=== PATIENT | female | born 1990 | race Caucasian/White ===

== ENCOUNTER 2021-06-04 21:59 | Inpatient (IN) ==
[2021-06-05 04:06] LABS: Adenovirus Not Detected (Not Detect); Bordetella Pertussis Not Detected (Not Detect); Chlamydophila pneumoniae Not Detected (Not Detect); Coronavirus 229E Not Detected (Not Detect); Coronavirus HKU1 Not Detected (Not Detect); Coronavirus NL63 Not Detected (Not Detect); Coronavirus OC43 Not Detected (Not Detect); Human Metapneumovirus Not Detected (Not Detect); Human Rhinovirus/Enterovirus Not Detected (Not Detect); Influenza A Subtype 2009 H1 Not Detected (Not Detect); Influenza B Not Detected (Not Detect); Mycoplasma pneumoniae Not Detected (Not Detect); Parainfluenza Virus 1 Not Detected (Not Detect); Parainfluenza Virus 2 Not Detected (Not Detect); Parainfluenza Virus 3 Not Detected (Not Detect); Parainfluenza Virus 4 Not Detected (Not Detect); Respiratory Syncytial Virus Not Detected (Not Detect); SARS-CoV-2 Not Detected (Not Detect)
[2021-06-05] MEDS ORDERED: *HR* LORazepam 1 MG TABLET PO PRN (04:13)
[2021-06-05] MEDS ORDERED: *HR* LORazepam 2 MG/ML VIAL IM PRN (04:13)
[2021-06-05] MEDS ORDERED: Acetaminophen 325 MG TABLET PO PRN (04:13)
[2021-06-05] MEDS ORDERED: Haloperidol Lactate 5 MG/ML VIAL IM PRN (04:13)
[2021-06-05] MEDS ORDERED: haloperidoL 5 MG TABLET PO PRN (04:13)
[2021-06-05] MEDS ORDERED: MOM Conc 10 ML UD.LIQ PO PRN (08:16)
[2021-06-05] MEDS ORDERED: Mag Hydrox/Al Hydrox/Simeth 30 ML UDC PO PRN (08:16)
[2021-06-05] MEDS: hydrOXYzine pamoate 25 MG CAPSULE PO SCH ×2 (13:30→20:12)
[2021-06-05] MEDS: Multivit/Ca/Min/Fe/FA 1 TAB TABLET PO SCH (13:30)
[2021-06-05] MEDS: hydrOXYzine pamoate 25 MG CAPSULE PO PRN (17:15)
[2021-06-05] MEDS: Divalproex (12 HR) 500 MG TABLET PO SCH (20:11)
[2021-06-05] MEDS: Famotidine 20 MG TABLET PO SCH (20:11)
[2021-06-05] MEDS: QUEtiapine Fumarate 25 MG TABLET PO PRN (20:12)
[2021-06-06] MEDS: Famotidine 20 MG TABLET PO SCH ×2 (09:18→21:11)
[2021-06-06] MEDS: Multivit/Ca/Min/Fe/FA 1 TAB TABLET PO SCH (09:19)
[2021-06-06] MEDS: hydrOXYzine pamoate 25 MG CAPSULE PO SCH ×2 (09:20→21:12)
[2021-06-06] MEDS: Divalproex (12 HR) 500 MG TABLET PO SCH ×2 (09:20→21:11)
[2021-06-06] MEDS: Ibuprofen 400 MG TABLET PO PRN ×2 (11:35→21:11)
[2021-06-06] MEDS: hydrOXYzine pamoate 25 MG CAPSULE PO PRN (12:08)
[2021-06-06] MEDS: Nicotine 2 MG GUM BC PRN ×2 (14:14→16:55)
[2021-06-06] MEDS: QUEtiapine Fumarate 25 MG TABLET PO PRN (21:12)
[2021-06-07] MEDS: Ibuprofen 400 MG TABLET PO PRN ×2 (02:58→08:52)
[2021-06-07] MEDS: Famotidine 20 MG TABLET PO SCH (08:52)
[2021-06-07] MEDS: Multivit/Ca/Min/Fe/FA 1 TAB TABLET PO SCH (08:52)
[2021-06-07] MEDS: hydrOXYzine pamoate 25 MG CAPSULE PO SCH (08:53)
[2021-06-07] MEDS: Divalproex (12 HR) 500 MG TABLET PO SCH (08:53)
[2021-06-07] MEDS: Nicotine 2 MG GUM BC PRN (09:56)
[2021-06-07 10:33] VITALS: BP 132/96; PULSE 94; TEMP 97.6; O2SAT 97
== END 2021-06-07 12:00 | disposition home or self-care (01) | DRG 750 ==
LOC: EMEROOARM 21:59 → 1ANU 06-05 04:12
PROVIDERS: ADMIT Psychiatry & Neurology Psychiatry; ATTEND Psychiatry & Neurology Psychiatry